=== PATIENT | male | born 1960 | race Two or more races ===

== ENCOUNTER → 2024-10-13 | Outpatient (CLI) | payer MEDICAID, SELFPAY ==
--- NOTE | 2024-10-13 08:50 | XR_ITS ---
Examination: Knee, left , 3 views Technique: Knee AP, lateral, oblique 3 views Date and time of exam: October 13, 2024 0853 hours INDICATIONS: Postop knee arthroplasty 12 days ago. FINDINGS: Total left knee arthroplasty Satisfactory alignment No loosening of the prosthetic components No fracture Soft tissue swelling prepatellar IMPRESSION: Total left knee arthroplasty with satisfactory alignment
== END | disposition home or self-care (01) ==
LOC: SDIM 08:36
PROVIDERS: PCP Physician Assistant; Referring Provider Orthopaedic Surgery; Visit Provider Orthopaedic Surgery
DX: M17.12 Unilateral primary osteoarthritis, left knee (principal); Z96.652 Presence of left artificial knee joint
CPT/HCPCS: 73562

== ENCOUNTER → 2024-10-27 | Outpatient (CLI) | payer MEDICAID, SELFPAY ==
--- NOTE | 2024-10-27 10:38 | XR_ITS ---
Examination: Left knee 2 views TECHNIQUE: AP lateral left knee 2 views Exam date and time: October 27, 2024 1049 hours Comparison October 13, 2024 INDICATIONS: Swelling in the knee beginning September 2024 FINDINGS: Total left knee arthroplasty. Satisfactory alignment No fracture Moderate knee effusion Soft tissue swelling prepatellar IMPRESSION: Soft tissue swelling prepatellar, consider ultrasound soft tissue prepatellar follow-up as clinically warranted
== END | disposition home or self-care (01) ==
PROVIDERS: PCP Family Medicine; Referring Provider Physician Assistant; Visit Provider Physician Assistant
DX: M25.462 Effusion, left knee (principal); Z96.652 Presence of left artificial knee joint
CPT/HCPCS: 73560

== ENCOUNTER 2024-11-11 14:30 | Outpatient (RCR) | payer MEDICAID, SELFPAY ==
--- NOTE | 2024-10-14 14:06 | PT.OIERPT ---
PT OP Initial Eval Patient Information Outpatient Physical Therapy Treatment Date: 10/14/24 Visit Reasons: Left knee post op Medical Diagnosis: M17.12 Treatment Dx #1: L knee pain Treatment Dx #2: Dec L knee ROM Start of Care: 10/14/24 Date of Onset: 10/01/24 Smoking Status Smoking Status: Former smoker Years smoked: 15 Initial Assessment Subjective: Pt is 63 yr old macedonian speaking male s/p L TKA presents ambulating with a FWW HH and limited community distances. Pt reports pain with bending the knee. PMH: HTN, pre-DM Pt goal: to walk normal without pain and the FWW Objective: L knee ArOM: Extension: -15 deg Flexion: 52 deg SLR: 20 deg with extensor lag and difficulty Gait: antalgic with decreased WB on L Strength: 3-/5 in extension and flexion Transfers: minAx1 to lift L LE into supine Assessment: Pt presentation consistent with post op L TKA with decreased knee flexion and extension ROM, strength and functional mobility. Pt ambulates with decreased WB and stance time on L LE. Pt can SLR with extensor lag. Pt requires skilled therapy in order to decrease pain and improve ROM and has good rehab potential to reach PLOF with attainable functional improvement.? Short Term and Mcfp Goals 1. Ind with HEP ? 2. Improved knee flexion ROM to 120 deg and extension to full ? 3. Improved quad and hamstring strength to 4/5 ? 4. Pt will ambulate with symmetrical gait pattern community distances without FWW Treatment Plan 1. Manual therapy ? 2. Therex ? 3. Modalities as indicated, moist heat, ice, estim Frequency and Duration: 2x a week for 8 weeks Certification Dates: 10/14/24 to 01/10/25 Procedure Charges OP PT Eval Mod Complex 30 minutes: Yes
--- NOTE | 2024-10-17 14:28 | PT.ODAYNRPT ---
PT Outpatient Daily Note OP Daily Note Outpatient Physical Therapy Treatment Date: 10/17/24 Visit Reasons: Left knee post op Subjective: Pt reports he has been compliant with HEP. Pt shared that he followed up with surgeon recently and surgeon was expecting his knee to be at normal ROM. Objective: Please see flow sheet for ther ex list. Assessment: Performed PROM pt guarded resulting in limited mobility. Pt given print out of heel slides and iso quads to perform for HEP. Plan: Continue with POC. Length of Time (minutes) of Treatment: 30 Minutes Procedure Charges Therapeutic Exercise 30 minutes: Yes
--- NOTE | 2024-10-21 15:02 | PTNOTE_ITS ---
PT Outpatient Daily Note OP Daily Note Outpatient Physical Therapy Treatment Date: 10/21/24 Visit Reasons: Left knee post op Subjective: Pain with bending the knee Objective: See F/S for therex MT: PROM into extension x5' and flexion x5' to end-range Assessment: Pain and tightness limit PROM into flexion to about 80 deg. Improvement into extension to about -4 deg after MT. Plan: Improve ROM of L knee Length of Time (minutes) of Treatment: 30 Minutes Procedure Charges Therapeutic Exercise 15 minutes: Yes Manual Equipment Driver 15 minutes: Yes
--- NOTE | 2024-10-23 14:54 | PT.ODAYNRPT ---
PT Outpatient Daily Note OP Daily Note Outpatient Physical Therapy Treatment Date: 10/23/24 Visit Reasons: Left knee post op Subjective: Pt reports L knee is doing ok, pt is walking short distance in home without AD. Objective: Please see flow sheet for ther ex list. Assessment: Pt educated on GT with SPC, pt able to replicate with good technique no LOB. Plan: Continue with POC. Length of Time (minutes) of Treatment: 30 Minutes Procedure Charges Therapeutic Exercise 30 minutes: Yes
--- NOTE | 2024-10-28 18:50 | PT.ODAYNRPT ---
PT Outpatient Daily Note OP Daily Note Outpatient Physical Therapy Treatment Date: 10/28/24 Visit Reasons: Left knee post op Subjective: Pain with bending the knee Objective: See F/S for therex MT: PROM into extension x5' and flexion x5' to end-range Assessment: Pain and tightness limit PROM into flexion to about 80 deg. Improvement into extension to about -4 deg after MT. Plan: Improve ROM of L knee Length of Time (minutes) of Treatment: 30 Minutes Procedure Charges Therapeutic Exercise 30 minutes: Yes
--- NOTE | 2024-10-30 17:15 | PT.ODAYNRPT ---
PT Outpatient Daily Note OP Daily Note Outpatient Physical Therapy Treatment Date: 10/30/24 Visit Reasons: Left knee post op Subjective: Pain with bending the knee Objective: See F/S for therex Assessment: Pain and tightness limit PROM into flexion to about 80 deg. Improvement into extension to about -4 deg. Plan: Improve ROM of L knee Length of Time (minutes) of Treatment: 30 Minutes Procedure Charges Therapeutic Exercise 30 minutes: Yes
--- NOTE | 2024-11-04 09:22 | PT.ODAYNRPT ---
PT Outpatient Daily Note OP Daily Note Outpatient Physical Therapy Treatment Date: 11/04/24 Visit Reasons: Left knee post op Subjective: Pt reports knee is doing ok, still feels stiff and continues to use FWW because he does not feel confident or strong to walk without it. Objective: Please see flow sheet for ther ex list. Assessment: Pt demonstrates poor tolerance with LLPS into knee extension, pt encouraged to perform for HEP. Plan: Continue with POC. Length of Time (minutes) of Treatment: 30 Minutes Procedure Charges Therapeutic Exercise 30 minutes: Yes
--- NOTE | 2024-11-11 15:10 | PTNOTE_ITS ---
PT Outpatient Daily Note OP Daily Note Outpatient Physical Therapy Treatment Date: 11/11/24 Visit Reasons: Left knee post op Subjective: Pt reports L knee is doing better, is using SPC for ambulation. Objective: Please see flow sheet for ther ex list. Assessment: Pt ambulating with SPC with minimal antalgic gait. Added step up and down exercise, pt required STREET LIGHT LAMP CLEANER to perform due to L LE weakness. Plan: Progress per post op protocol. . Length of Time (minutes) of Treatment: 30 Minutes Procedure Charges Therapeutic Exercise 30 minutes: Yes
== END 2024-11-11 23:59 | disposition home or self-care (01) ==
LOC: CPTX 14:30
PROVIDERS: PCP Orthopaedic Surgery; Referring Provider Orthopaedic Surgery; Visit Provider Orthopaedic Surgery
DX: M25.562 Pain in left knee (principal); M17.12 Unilateral primary osteoarthritis, left knee; Z96.652 Presence of left artificial knee joint
CPT/HCPCS: 97110; 97140; 97162

== ENCOUNTER 2024-12-11 10:00 | Outpatient (RCR) | payer MEDICAID, SELFPAY ==
--- NOTE | 2024-11-18 09:58 | PT.ODAYNRPT ---
PT Outpatient Daily Note OP Daily Note Outpatient Physical Therapy Treatment Date: 11/18/24 Visit Reasons: Left knee post op Subjective: Continued pain with bending the knee Objective: See F/S for therex MT: PPM into flexion x7' to 104 deg Assessment: Pain with overpressure and myofascial tension limits flexion PROM but improved to 104 deg today Plan: Improve flexion and extension ROM Length of Time (minutes) of Treatment: 30 Minutes Procedure Charges Therapeutic Exercise 30 minutes: Yes
--- NOTE | 2024-11-20 09:39 | PT.ODAYNRPT ---
PT Outpatient Daily Note OP Daily Note Outpatient Physical Therapy Treatment Date: 11/20/24 Visit Reasons: Left knee post op Subjective: Continued pain with bending the knee Objective: See F/S for therex MT: PPM into flexion x7' to 104 deg Assessment: Pain with overpressure and myofascial tension limits flexion PROM but improved to 104 deg today Plan: Improve flexion and extension ROM Length of Time (minutes) of Treatment: 30 Minutes Procedure Charges Therapeutic Exercise 30 minutes: Yes
--- NOTE | 2024-11-24 10:22 | PT.ODAYNRPT ---
PT Outpatient Daily Note OP Daily Note Outpatient Physical Therapy Treatment Date: 11/24/24 Visit Reasons: Left knee post op Subjective: Continued pain with bending the knee Objective: See F/S for therex MT: PPM into flexion x7' to 104 deg Assessment: Pain with overpressure and myofascial tension limits flexion PROM but improved to 104 deg today Plan: Improve flexion and extension ROM Length of Time (minutes) of Treatment: 30 Minutes Procedure Charges Therapeutic Exercise 30 minutes: Yes
--- NOTE | 2024-11-27 10:32 | PT.ODAYNRPT ---
PT Outpatient Daily Note OP Daily Note Outpatient Physical Therapy Treatment Date: 11/27/24 Visit Reasons: Left knee post op Subjective: Pt reports L knee is doing better but still not bending as far as he would like. Objective: Please see flow sheet for ther ex list. Assessment: Performed PROM to L knee into flexion, range limited by pain. Plan: Continue with POC. Length of Time (minutes) of Treatment: 30 Minutes Procedure Charges Therapeutic Exercise 30 minutes: Yes
--- NOTE | 2024-12-03 10:06 | PTNOTE_ITS ---
PT Outpatient Daily Note OP Daily Note Outpatient Physical Therapy Treatment Date: 12/03/24 Visit Reasons: Left knee post op Subjective: Pt reports knee is doing better. Pt shared that after last session pt knee, hip and l/s were sore from knee stretches. Objective: Please see flow sheet for ther ex list. Assessment: Pt instructed on step up exercise, pt required SYSTEMS LIBRARIAN to take load of L knee when ascending. Plan: Continue with pOC. Length of Time (minutes) of Treatment: 30 Minutes Procedure Charges Therapeutic Exercise 30 minutes: Yes
--- NOTE | 2024-12-05 10:58 | PT.ODAYNRPT ---
PT Outpatient Daily Note OP Daily Note Outpatient Physical Therapy Treatment Date: 12/05/24 Visit Reasons: Left knee post op Subjective: Continued pain with bending the knee and along the lateral L thigh. Objective: See F/S for therex MT: STM L ITB x7' Assessment: Pt has ITB pain and possibly sciatic nerve pain down the L LE. Pain with overpressure and myofascial tension limits flexion PROM but improved to 104 deg last visit. Plan: Improve flexion and extension ROM Length of Time (minutes) of Treatment: 30 Minutes Procedure Charges Therapeutic Exercise 30 minutes: Yes
--- NOTE | 2024-12-09 13:06 | PT.ODAYNRPT ---
PT Outpatient Daily Note OP Daily Note Outpatient Physical Therapy Treatment Date: 12/09/24 Visit Reasons: Left knee post op Subjective: Pt reports knee is doing well, feels it is progressing. Objective: Please see flow sheet for ther ex list. Assessment: Pt instructed on split quat lunge, pt instructed to control squat depth pt complied. No pain to report with intervention. Plan: Continue with POC. Length of Time (minutes) of Treatment: 30 Minutes Procedure Charges Therapeutic Exercise 30 minutes: Yes
--- NOTE | 2024-12-11 10:39 | PT.ODS1RPT ---
PT OP Progress/Discharge Note Date of Service: 12/11/24 Progress Note/DC Note Progress Note/Discharge Note: Progress Note Patient Information Visit Reasons: Left knee post op Service Continue Service or Discharge: Continue Service Status Subjective: Continued pain with bending the knee and along the lateral L thigh. He is ambulating with SPC and careful gait. Objective: See F/S for therex L knee AROM: PROM: Flexion: 95 deg 104 deg Extension: -3 deg full Strength: Quads: 4/5 HS: 02/14 Assessment: Pt has attended 15/15 Rx sessions with fair progress with therapy goals. ROM into flexion is limited to about 95 deg and he has pain with overpressure and myofascial tension limits flexion PROM but improved to 104 deg last visit. He can ambulate with SPC limited community distances but gait pattern isn't fully symmetrical. Pt has ITB pain and possibly sciatic nerve pain down the L LE potentially limiting him. He would benefit from additional therapy to improve knee flexion ROM. Plan: Request additional visits x6 to improve knee flexion ROM to 110 deg Procedure Charges Therapeutic Exercise 30 minutes: Yes
== END 2024-12-12 23:59 | disposition home or self-care (01) ==
LOC: CPTX 10:00
PROVIDERS: PCP Orthopaedic Surgery; Referring Provider Orthopaedic Surgery; Visit Provider Orthopaedic Surgery
DX: M25.562 Pain in left knee (principal); M17.12 Unilateral primary osteoarthritis, left knee; Z96.652 Presence of left artificial knee joint; I10 Essential (primary) hypertension
CPT/HCPCS: 97110

== ENCOUNTER → 2024-12-15 | Outpatient (CLI) | payer MEDICAID, SELFPAY ==
--- NOTE | 2024-12-15 08:06 | XR_ITS ---
Examination: Left knee 2 views Technique one AP lateral left knee 2 views Exam date and time: December 15, 2024 at 0816 hours INDICATIONS: Knee surgeries October 01, 2024 FINDINGS: Total left knee arthroplasty. Satisfactory alignment. No loosening of the prosthetic components. No fracture IMPRESSION: Total left knee arthroplasty with satisfactory alignment
== END | disposition home or self-care (01) ==
PROVIDERS: PCP Orthopaedic Surgery; Referring Provider Orthopaedic Surgery; Visit Provider Orthopaedic Surgery
DX: Z96.652 Presence of left artificial knee joint (principal)
CPT/HCPCS: 73560

== ENCOUNTER 2025-01-08 07:05 | Day surgery (SDC) | payer MEDICAID, SELFPAY ==
[2025-01-07 13:22] VITALS: BMI 32.4
[2025-01-08] VITALS (9 sets, daily range): BP systolic 126–141; BP diastolic 85–91; PULSE 69–88; RESP 11–20; TEMP 36.2–36.7; O2SAT 94–97; BMI 31.6
[2025-01-08] MEDS: SODIUM CHLORIDE 0.9% 500 ML 500 ML 100 ML IV (07:45)
[2025-01-08] MEDS: fentaNYL CIT INJ 50 mCg/ML AMP 2ML (ASD USE ONLY) IV (07:51)
[2025-01-08] MEDS: DiphenhydrAMINE INJ 50 MG/ML VIAL 25 MG IV (07:51)
[2025-01-08] MEDS: MIDAZOLAM INJ 1 MG/ML VIAL 2 ML (ASD USE ONLY) 2 MG IV (07:56)
== END 2025-01-08 09:06 | disposition home or self-care (01) ==
PROVIDERS: Referring Provider Surgery; Visit Provider Surgery
PROC: 0DBE8ZX Excision of Large Intestine, Via Natural or Artificial Opening Endoscopic, Diagnostic (ICD-10-PCS; CPT 45380; principal; 2025-01-08 07:30)
DX: Z12.11 Encounter for screening for malignant neoplasm of colon (principal); D12.4 Benign neoplasm of descending colon; K64.1 Second degree hemorrhoids; K57.30 Diverticulosis of large intestine without perforation or abscess without bleeding; E11.9 Type 2 diabetes mellitus without complications; I10 Essential (primary) hypertension
CPT/HCPCS: 45380; A4649; J1200; J2250; J3010; J7040

== ENCOUNTER 2025-01-08 14:30 | Outpatient (RCR) | payer MEDICAID, SELFPAY ==
--- NOTE | 2024-12-30 16:48 | PT.ODAYNRPT ---
PT Outpatient Daily Note OP Daily Note Outpatient Physical Therapy Treatment Date: 12/30/24 Visit Reasons: Left knee post op Subjective: Continued pain with bending the knee and along the lateral L thigh and posterior knee Objective: See F/S for therex MT: STM L pop fossa x7' Assessment: Pain with overpressure and myofascial tension limits flexion PROM. There is a hard protrusion over lateral popliteal fossa Plan: Improve flexion and extension ROM Length of Time (minutes) of Treatment: 30 Minutes Procedure Charges Therapeutic Exercise 30 minutes: Yes
--- NOTE | 2025-01-05 15:06 | PT.ODAYNRPT ---
PT Outpatient Daily Note OP Daily Note Outpatient Physical Therapy Treatment Date: 01/05/25 Visit Reasons: Left knee post op Subjective: Continued pain with bending the knee and along the lateral L thigh and posterior knee Objective: See F/S for therex MT: STM L ITB and lateral gastroc x7' Assessment: Pain with overpressure and myofascial tension of ITB limits flexion PROM. There is a hard protrusion over lateral popliteal fossa Plan: Improve flexion and extension ROM, reduce L ITB pain Length of Time (minutes) of Treatment: 30 Minutes Procedure Charges Therapeutic Exercise 30 minutes: Yes
--- NOTE | 2025-01-08 15:16 | PT.ODAYNRPT ---
PT Outpatient Daily Note OP Daily Note Outpatient Physical Therapy Treatment Date: 01/08/25 Visit Reasons: Left knee post op Subjective: Continued pain with bending the knee and along the lateral L thigh and posterior knee Objective: See F/S for therex MT: STM L ITB and lateral gastroc x7' Assessment: Pain with overpressure and myofascial tension of ITB limits flexion PROM. Plan: Improve flexion and extension ROM, reduce L ITB pain Length of Time (minutes) of Treatment: 30 Minutes Procedure Charges Therapeutic Exercise 30 minutes: Yes
== END 2025-01-09 23:59 | disposition home or self-care (01) ==
LOC: CPTX 14:30
PROVIDERS: PCP Orthopaedic Surgery; Referring Provider Orthopaedic Surgery; Visit Provider Orthopaedic Surgery
DX: M25.562 Pain in left knee (principal); M17.12 Unilateral primary osteoarthritis, left knee; Z96.652 Presence of left artificial knee joint; I10 Essential (primary) hypertension
CPT/HCPCS: 97110

== ENCOUNTER 2025-01-19 14:00 | Outpatient (RCR) | payer MEDICAID, SELFPAY ==
--- NOTE | 2025-01-14 11:27 | PT.ODAYNRPT ---
PT Outpatient Daily Note OP Daily Note Outpatient Physical Therapy Treatment Date: 01/14/25 Visit Reasons: Left knee post op Subjective: Pt reports knee is doing better but when he sits for long period of time it takes him a while before he can initiate step due to L LE feeling weak. Pt shared that he also has l/s issues. Objective: Please see flow sheet for ther ex list. Assessment: Pt instructed on step up exercise able to perform with no TECHNICIAN ANATOMIC PATHOLOGY. Plan: Continue with pOC. Length of Time (minutes) of Treatment: 30 Minutes Procedure Charges Therapeutic Exercise 30 minutes: Yes
--- NOTE | 2025-01-16 15:23 | PT.ODAYNRPT ---
PT Outpatient Daily Note OP Daily Note Outpatient Physical Therapy Treatment Date: 01/16/25 Visit Reasons: Left knee post op Subjective: Pt reports L knee is hurting today not sure if it is due to cold weather. Objective: Please see flow sheet for ther ex list. Assessment: Performed PROm into knee flexion, pt guarded resulting in limited range. Plan: Continue with POC Length of Time (minutes) of Treatment: 30 Minutes Procedure Charges Therapeutic Exercise 30 minutes: Yes
--- NOTE | 2025-01-19 14:31 | PT.ODS1RPT ---
PT OP Progress/Discharge Note Date of Service: 01/19/25 Progress Note/DC Note Progress Note/Discharge Note: DC Note Patient Information Visit Reasons: Left knee post op Service Continue Service or Discharge: Discharge Discharge Date: 01/19/25 Status Subjective: Continued pain with bending the knee behind the knee and along the lateral L thigh. He is ambulating without assistive device Objective: See F/S for therex L knee AROM: PROM: Flexion: 97 deg 104 deg Extension: -3 deg full Strength: Quads: 4/5 HS: 4/5 Assessment: Pt has attended / Rx sessions with fair progress with therapy goals but progress has plateaued. AROM into flexion is limited to about 97 deg and he has pain with overpressure and myofascial tension limits flexion PROM but improved to 104 deg last visit. He can ambulate with SPC limited community distances but gait pattern isn't fully symmetrical which is likely causing the tension and pain in the posterior knee and LE. If his gait pattern isn't causing the pain behind the knee it could possibly sciatic nerve pain down the L LE potentially limiting him. He may benefit from further diagnostic imaging Plan: D/C with HEP Procedure Charges Therapeutic Exercise 30 minutes: Yes
== END 2025-02-09 23:59 | disposition home or self-care (01) ==
LOC: CPTX 14:00
PROVIDERS: PCP Orthopaedic Surgery; Referring Provider Orthopaedic Surgery; Visit Provider Orthopaedic Surgery
DX: M25.562 Pain in left knee (principal); Z96.652 Presence of left artificial knee joint; M17.12 Unilateral primary osteoarthritis, left knee; I10 Essential (primary) hypertension
CPT/HCPCS: 97110